=== PATIENT | female | born 1975 | race Caucasian/White ===

== ENCOUNTER 2021-08-29 12:59 | Outpatient (CLI) | payer BC, SELFPAY ==
[2021-08-29 13:58] LABS: T3 Total - Triiodothyronine 1.04 ng/mL (0.6-1.81); Vitamin B12 928 pg/mL (211-911)
[2021-08-29 14:48] LABS: Estradiol 19.9 pg/mL; Ferritin 39 ng/mL (8-252); Free T3 2.9 pg/mL (2.18-3.98); GGTP 18 U/L (5-55); Iron 50 ug/dL (50-170); Iron Binding Capacity,Total 304 ug/dL (250-450); T4 Free Direct 1.06 ng/dL (0.76-1.46); Thyroid Stim Hormone (TSH) 0.82 uIU/mL (0.358-3.74)
[2021-09-05 17:26] LABS: T3 Reverse 13.3 ng/dL (9.2-24.1)
== END 2021-08-29 23:59 | disposition home or self-care (01) ==
LOC: WOBLAB 13:02
PROVIDERS: Visit Provider Obstetrics & Gynecology
DX: D75.1 Secondary polycythemia (principal); N95.1 Menopausal and female climacteric states; N92.6 Irregular menstruation, unspecified
CPT/HCPCS: 36415; 82607; 82627; 82670; 82728; 82977; 83540; 83550; 84144; 84403; 84439; 84443; 84480; 84481; 84482; 82626

== ENCOUNTER → 2022-01-01 | Outpatient (CLI) | payer BC, SELFPAY ==
[2022-01-01 12:51] LABS: T3 Total - Triiodothyronine 1.14 ng/mL (0.6-1.81)
[2022-01-01 13:01] LABS: Free T3 2.8 pg/mL (2.18-3.98); T4 Free Direct 0.99 ng/dL (0.76-1.46); Thyroid Stim Hormone (TSH) 0.93 uIU/mL (0.358-3.74)
[2022-01-05 13:46] LABS: T3 Reverse 14.1 ng/dL (9.2-24.1); Thyroglobulin Antibody < 1.0 IU/mL (0.0-0.9)
[2022-01-08 09:08] LABS: Thyroid Peroxidase AB < 8 IU/mL (0-34)
== END | disposition home or self-care (01) ==
LOC: WOBLAB 11:18
PROVIDERS: Visit Provider Obstetrics & Gynecology
DX: R30.0 Dysuria (principal); E03.9 Hypothyroidism, unspecified
CPT/HCPCS: 36415; 84439; 84443; 84480; 84481; 84482; 86376; 86800; 87077; 87086; 87088; 87186